=== PATIENT | female | born 2000 | race African-American/Black ===

== ENCOUNTER 2020-06-21 10:22 | Observation (INO) | payer MEDICAID ==
[~2020-06-21] VITALS: Ht 152.4 cm; Wt 68.0 kg
[2020-06-21 11:06] LABS: CLARITY URINE CLOUDY (CLEAR); COLOR URINE DARK YELLOW (YELLOW); KETONES URINE 3+ (NEGATIVE); LEUKOCYTE ESTERASE URINE 2+ (NEGATIVE); NITRITE URINE NEGATIVE (NEGATIVE); OCCULT BLOOD URINE NEGATIVE (NEGATIVE); PH URINE 6.5 (4.5-8.0); PROTEIN URINE 1+ (NEGATIVE)
[2020-06-21] MEDS: LACTATED RINGERS 1,000 ML IV SCH (11:34)
[2020-06-21] MEDS: CEFAZOLIN 1000MG PREMIX 50 ML IV SCH (11:52)
[2020-06-21] MEDS ORDERED: PREN1TAB78 MT (12:22)
[2020-06-21] MEDS: TERBUTALINE SULFATE 1MG/ML VIAL SUBCUT NR (12:41)
[2020-06-21] MEDS: ONDANSETRON HCL 4MG/2ML INJ IV NR (13:16)
== END 2020-06-21 14:00 | disposition home or self-care (01) ==
LOC: 8 EST LDRP 10:22
PROVIDERS: ADMIT Obstetrics & Gynecology; ATTEND Obstetrics & Gynecology
DX: O26.893 Other specified pregnancy related conditions, third trimester (principal); R10.9 Unspecified abdominal pain; Z3A.36 36 weeks gestation of pregnancy
CPT/HCPCS: 59025; 81003; 96361; 96365; 96372; 96375; G0378; J0690; J2405; J3105; 96360; 99281; J7120